=== PATIENT | male | born 1955 ===

== ENCOUNTER 2017-08-13 19:14 | Emergency (ER) | payer SELFPAY ==
[2017-08-13 19:25] VITALS: BP 136/90
--- NOTE | 2017-08-14 02:45 | Emergency Department Report ---
ED Extremity Problem HPI - General Chief complaint: Extremity Injury, Lower Stated complaint: BILATERAL KNEE PAIN Time Seen by Provider: 08/14/17 02:27 Source: patient Mode of arrival: Ambulatory Limitations: No Limitations - History of Present Illness Initial comments: Patient reports that he has bilateral knee pain and swelling for more than 6 months. Patient said that he phonates sneeze a few days ago and is aggravated pain pain is not as attentive and achy. He states his girlfriend cousin just of a blood clot so he wants to get checked. Denies any shortness of breath or chest pain. Denies any long distance travel by car or airplane. Denies any previous history of blood clot personally or in his family. Denies being on any hormonal therapy, history of any cancer or any recent convalescent. Denies any clotting disorder. Pain is localized to the anterior knee. He said he took ibuprofen and it didn't help much. Denies any pain or swelling to his legs MD Complaint: joint swelling, joint paint Onset/Timin -: month(s) Location: knee History of Same: Yes -: No myalgia, Yes arthralgia, No fever, No associated dyspnea, No associated chest pain Radiation: none Severity scale (0 -10): 9 (both knees) Quality: aching Consistency: intermittent Improves with: immobilization, medication, rest Worsens with: weight bearing, walking, exertion Associated Symptoms: arthralgias. denies: chest pain, shortness of breath, fever, myalgias, rash - Related Data Previous Rx's Medication Instructions Recorded Last Taken Type Ibuprofen [Motrin] 800 mg PO Q8HR PRN #12 tablet 08/14/17 Unknown Rx Allergies Allergy/AdvReac Type Severity Reaction Status Date / Time No Known Allergies Allergy Unverified 08/13/17 19:23 ED Review of Systems ROS: Stated complaint: BILATERAL KNEE PAIN Other details as noted in HPI Comment: All other systems reviewed and negative Constitutional: no symptoms reported Eyes: denies: eye pain, eye discharge Respiratory: no symptoms reported Cardiovascular: denies: chest pain, palpitations, dyspnea on exertion, edema, syncope, paroxysmal nocturnal dyspnea Gastrointestinal: denies: abdominal pain, nausea, vomiting, diarrhea, constipation, hematemesis, melena, hematochezia Genitourinary: denies: urgency, dysuria, frequency, hematuria, discharge, testicular pain, testicular mass Musculoskeletal: joint swelling, arthralgia. denies: back pain, myalgia Skin: denies: rash Neurological: denies: headache, weakness, numbness, paresthesias, confusion, abnormal gait, vertigo ED Past Medical Hx - Past Medical History Previous Medical History?: No - Surgical History Past Surgical History?: No - Family History Family history: hypertension - Social History Smoking Status: Former Smoker Substance Use Type: Alcohol - Medications Home Medications: Home Medications Medication Instructions Recorded Confirmed Last Taken Type Ibuprofen [Motrin] 800 mg PO Q8HR PRN #12 tablet 08/14/17 Unknown Rx ED Physical Exam - General Limitations: No Limitations General appearance: alert, in no apparent distress - Head Head exam: Present: atraumatic, normocephalic, normal inspection - Eye Eye exam: Present: normal appearance, PERRL, EOMI Pupils: Present: normal accommodation - ENT ENT exam: Present: normal exam, normal orophraynx, mucous membranes moist - Neck Neck exam: Present: normal inspection, full ROM, other (no C-spine tenderness). Absent: tenderness, meningismus, lymphadenopathy, thyromegaly - Respiratory Respiratory exam: Present: normal lung sounds bilaterally. Absent: respiratory distress, chest wall tenderness, accessory muscle use - Cardiovascular Cardiovascular Exam: Present: regular rate, normal rhythm, normal heart sounds. Absent: systolic murmur, diastolic murmur - GI/Abdominal GI/Abdominal exam: Present: soft, normal bowel sounds. Absent: distended, tenderness, guarding, rebound, rigid - External exam: Present: swelling. Absent: normal external exam, erythema, lesions, lacerations, ecchymosis, bleeding - Extremities Exam Extremities exam: Present: normal inspection, full ROM, tenderness, normal capillary refill, joint swelling, other (no clubbing, cyanosis or edema. +2 pulses all extremities. No neurovascular compromise. Positive bilateral knee joint swelling which is minimal. Positive crepitus to knee joint without any signs of infection. +5 strength in all extremities). Absent: pedal edema, calf tenderness - Expanded Lower Extremity Exam Left Hip exam: Present: normal inspection, full ROM, pelvic stability. Absent: tenderness, swelling, abrasion, laceration, ecchymosis, deformity, crepidus, dislocation, erythema, external rotation, internal rotation, shortening Upper Leg exam: Present: normal inspection, full ROM. Absent: tenderness, swelling, abrasion, laceration, ecchymosis, deformity, crepidus, dislocation, erythema Knee exam: Present: normal inspection, full ROM, tenderness, swelling, crepidus , effusion, full knee extension. Absent: abrasion, laceration, ecchymosis, deformity, dislocation, erythema, pain w/ pronation/supination, posterior draw sign, pain/laxity with valgus, pain/laxity with varus Lower Leg exam: Present: normal inspection, full ROM. Absent: tenderness, swelling, abrasion, laceration, ecchymosis, deformity, crepidus, dislocation, Marlen's sign Ankle exam: Present: normal inspection, full ROM. Absent: tenderness, swelling , abrasion, laceration, ecchymosis, deformity, crepidus, dislocation, erythema Foot/Toe exam: Present: normal inspection, full ROM. Absent: tenderness, swelling, abrasion, laceration, ecchymosis, deformity, crepidus, dislocation, erythema, amputation, puncture wound, foreign body, calcaneal tenderness, tenderness at base of 5th metatarsal, nail avulsion, subungual hematoma Neuro vascular tendon exam: Present: no vascular compromise. Absent: pulse deficit, abnormal cap refill, motor deficit, sensory deficit, tendon deficit, extremity cold to touch, abnormal 2-point discrimination, decreased fine/light touch, foot drop, peroneal nerve deficit, significant pain with passive ROM of distal joint Gait: Positive: observed and limited by pain Right Hip exam: Present: normal inspection, full ROM, pelvic stability. Absent: tenderness, swelling, abrasion, laceration, ecchymosis, deformity, crepidus, dislocation, erythema, external rotation, internal rotation, shortening Knee exam: Present: normal inspection, full ROM, tenderness, swelling, crepidus , full knee extension. Absent: abrasion, laceration, ecchymosis, deformity, dislocation, erythema, effusion, pain w/ pronation/supination, posterior draw sign, pain/laxity with valgus, pain/laxity with varus Lower Leg exam: Present: normal inspection, full ROM. Absent: tenderness, swelling, abrasion, laceration, ecchymosis, deformity, crepidus, dislocation, erythema, palpable cord, Marlen's sign Ankle exam: Present: normal inspection, full ROM. Absent: tenderness, swelling , abrasion, laceration, ecchymosis, deformity, crepidus, dislocation, erythema Foot/Toe exam: Present: normal inspection, full ROM. Absent: tenderness, swelling, abrasion, laceration, ecchymosis, deformity, crepidus, dislocation, erythema, amputation, puncture wound, foreign body, calcaneal tenderness, tenderness at base of 5th metatarsal, nail avulsion, subungual hematoma Neuro vascular tendon exam: Present: no vascular compromise, significant pain with passive ROM of distal joint. Absent: pulse deficit, abnormal cap refill, motor deficit, sensory deficit, tendon deficit, extremity cold to touch, pallor , abnormal 2-point discrimination, decreased fine/light touch, foot drop, peroneal nerve deficit Gait: Positive: observed and limited by pain - Back Exam Back exam: Present: normal inspection, full ROM, other (ambulates without any difficulties). Absent: tenderness, CVA tenderness (R), CVA tenderness (L), muscle spasm, paraspinal tenderness, vertebral tenderness, rash noted - Neurological Exam Neurological exam: Present: alert, oriented X3, normal gait, reflexes normal. Absent: motor sensory deficit - Psychiatric Psychiatric exam: Present: normal affect, normal mood - Skin Skin exam: Present: warm, dry, intact, normal color. Absent: rash ED Course Vital Signs 08/13/17 08/14/17 19:23 04:07 Temperature 98 F Pulse Rate 73 68 Respiratory 18 17 Rate Blood Pressure 136/90 O2 Sat by Pulse 99 97 Oximetry - Reevaluation(s) Reevaluation #1: 08/14/17 03:58 Patient given Motrin 800 mg emergency room for pain. ED Medical Decision Making - Radiology Data Radiology results: report reviewed X-ray of both knees reveal tricompartmental arthritic changes in both knees with small left effusion. No fracture dislocation seen. - Medical Decision Making ED course: Patient here complaining of bilateral knee pain with swelling just been ongoing but worsening in since he fell a couple days ago. Physical findings for swelling to left knee without any erythema. Mild tenderness to palpate. Positive crepitus to both knee. Patient able to flex and extend his knee with minimal pain. Patient with small effusion to left knee. X-ray of both knees reveals patient with tricompartmental degenerative joint disease. Patient was concerned about blood clots in his leg. He said his friend cousin just recently. Based on my physical findings and HPI and also applying well's criteria for pulmonary embolism and DVT patient with 0 point and is at low risk for PE and DVT. This was related to patient and he seems to feel better. Patient also educated on degenerative joint disease and I informing that his x-ray revealed that he has degenerative joint disease and he will need to follow up with orthopedic doctor who is Dr. Lake and if he cannot access Dr. Lake he will need to follow-up with [facility] for primary care. Vision voiced understanding and discharged home with prescription for Motrin. Critical care attestation.: If time is entered above; I have spent that time in minutes in the direct care of this critically ill patient, excluding procedure time. ED Disposition Clinical Impression: Knee effusion, left, Bilateral anterior knee pain Tricompartment degenerative joint disease of knee Qualifiers: Laterality: bilateral Qualified Code(s): M17.0 - Bilateral primary osteoarthritis of knee Disposition: DC- TO HOME OR SELFCARE Is pt being admited?: No Does the pt Need Aspirin: No Condition: Stable Instructions: Osteoarthritis (ED), Knee Effusion (ED), Knee Pain (ED), Arthralgia (ED), Knee Exercises (GEN) Additional Instructions: Please follow up with orthopedic doctor as discussed Follow-up with [facility] in 2-3 days Increased her fluid intake Rest and do not overwork your knees. Try not to walk for long periods of time Take Motrin as this will help to relieve urinary knee pain. Prescriptions: Ibuprofen [Motrin] 800 mg PO Q8HR PRN #12 tablet PRN Reason: KNEE PAIN Referrals: KAIA LAKE MD [Staff Physician] - 2-3 Days [facility] [Outside] - 2-3 Days Forms: Work/School Release Form(ED)
[2017-08-14] MEDS ORDERED: MOTRIN PO ONE (02:51)
--- NOTE | 2017-08-14 03:24 | XRay Report ---
FINAL REPORT EXAM: XR KNEE BILAT 3V HISTORY: fall with knne pain TECHNIQUE: Three views of each knee were obtained for total of 6 views. FINDINGS: With the right knee there is moderate to severe narrowing of the medial compartment with [id number] narrowing of the lateral and patellofemoral compartments. There is mild patellar spurring superiorly and inferiorly. There is no evidence of fracture or joint effusion. In the left knee there is severe narrowing of the medial compartment with [id number] narrowing of the lateral and patellofemoral compartments. There is a very small joint effusion. There is spurring along the superior and inferior margin of the patella. IMPRESSION: Bilateral tricompartmental arthritic changes of both knees. Small left-sided joint effusion No evidence of fracture or dislocation
== END 2017-08-14 04:07 | disposition home or self-care (01) ==
LOC: ED 19:14
DX: M25.561 Pain in right knee (principal); M25.562 Pain in left knee; Z87.891 Personal history of nicotine dependence
CPT/HCPCS: 99283